=== PATIENT | female | born 1965 | race African-American/Black ===

== ENCOUNTER 2022-07-03 04:31 | Day surgery (SDC) | payer OTHER ==
[2022-07-02 07:41] VITALS: BMI 30.2
[2022-07-03 10:20] VITALS: TEMP 97.5
[2022-07-03 10:55] VITALS: BP 117/79; PULSE 67; RESP 14
== END 2022-07-03 11:41 | disposition home or self-care (01) ==
LOC: JASU-ENDO 04:31
PROVIDERS: ATTEND Internal Medicine Gastroenterology
PROC: 0DB68ZX Excision of Stomach, Via Natural or Artificial Opening Endoscopic, Diagnostic (ICD-10-PCS; 2022-07-03)
PROC: 0DBP8ZX Excision of Rectum, Via Natural or Artificial Opening Endoscopic, Diagnostic (ICD-10-PCS; 2022-07-03)
PROC: 0DB58ZX Excision of Esophagus, Via Natural or Artificial Opening Endoscopic, Diagnostic (ICD-10-PCS; principal; 2022-07-03 09:45)
DX: Z12.11 Encounter for screening for malignant neoplasm of colon (principal); K57.30 Diverticulosis of large intestine without perforation or abscess without bleeding; D12.2 Benign neoplasm of ascending colon; K64.8 Other hemorrhoids; K29.50 Unspecified chronic gastritis without bleeding; K21.00 Gastro-esophageal reflux disease with esophagitis, without bleeding; K62.1 Rectal polyp
CPT/HCPCS: 88305-TC; 88342-TC